=== PATIENT | female | born 1980 | race Caucasian/White ===

== ENCOUNTER 2020-08-30 19:00 | Emergency (ER) | payer MEDICAID ==
[~2020-08-30] VITALS: Ht 165.1 cm; Wt 79.5 kg
[~2020-08-30 19:00] MED LIST: HYDR-3964 PO; NO HOME MEDS
[2020-08-30] MEDS ORDERED: CEPH250T PO (19:58)
[2020-08-30 20:19] VITALS: BP 145/90
== END 2020-08-30 20:20 | disposition home or self-care (01) ==
LOC: ER 19:00
DX: K08.89 Other specified disorders of teeth and supporting structures (principal); H92.02 Otalgia, left ear; J45.909 Unspecified asthma, uncomplicated; Z90.49 Acquired absence of other specified parts of digestive tract; Z98.890 Other specified postprocedural states; Z88.8 Allergy status to other drugs, medicaments and biological substances; Z79.2 Long term (current) use of antibiotics; Z79.899 Other long term (current) drug therapy
CPT/HCPCS: 99283

== ENCOUNTER 2020-08-31 04:31 | Emergency (ER) | payer MEDICAID ==
[~2020-08-31] VITALS: Ht 165.1 cm; Wt 79.5 kg
[~2020-08-31 04:31] MED LIST changes: +CEPH250T PO
[2020-08-31 04:45] VITALS: BP 123/81
== END 2020-08-31 04:52 | disposition home or self-care (01) ==
LOC: ER 04:31
DX: K08.89 Other specified disorders of teeth and supporting structures (principal); R68.84 Jaw pain; J45.909 Unspecified asthma, uncomplicated; F17.200 Nicotine dependence, unspecified, uncomplicated; Z90.49 Acquired absence of other specified parts of digestive tract; Z98.890 Other specified postprocedural states; Z88.8 Allergy status to other drugs, medicaments and biological substances; Z79.2 Long term (current) use of antibiotics; Z79.899 Other long term (current) drug therapy
CPT/HCPCS: 99282

== ENCOUNTER 2021-03-19 06:55 | Emergency (ER) | payer MEDICAID ==
[~2021-03-19] VITALS: Ht 165.1 cm; Wt 84.5 kg
[~2021-03-19 06:55] MED LIST changes: -CEPH250T PO
[2021-03-19 06:59] VITALS: BP 113/72
[2021-03-19] MEDS ORDERED: ketorolac tromethamine 15mg/ml inj. IM ONE (08:25)
[2021-03-19] MEDS ORDERED: orphenadrine citrate 60mg/2ml inj. IM ONE (08:25)
[2021-03-19] MEDS ORDERED: ketorolac trometh. 30mg/ml inj. IM ONE (08:30)
[2021-03-19 08:51] LABS: CLARITY,URINE CLEAR (Clear); COLOR,URINE YELLOW (Yellow); GLUCOSE, URINE NEGATIVE (Neg); KETONES,URINE NEGATIVE (Neg); LEUKOCYTE ESTERASE ,URINE NEGATIVE (Neg); NITRITES, URINE NEGATIVE (Neg); OCCULT BLOOD,URINE NEGATIVE (Neg); PROTEIN,URINE NEGATIVE (Neg); URINE HCG NEGATIVE (NEG); UROBILINOGEN,URINE 0.2 E.U/dL (0.2-1.0)
[2021-03-19 08:53] LABS: UA COLLECTION TYPE CLN CATCH MIDSTREAM
[2021-03-19] MEDS ORDERED: IBUP-1984 PO (09:17)
[2021-03-19] MEDS ORDERED: ORPH100T2 PO (09:17)
== END 2021-03-19 09:30 | disposition home or self-care (01) ==
LOC: ER 06:56
DX: G89.29 Other chronic pain (principal); M54.50 Low back pain, unspecified; Z90.89 Acquired absence of other organs; Z85.9 Personal history of malignant neoplasm, unspecified; Z88.5 Allergy status to narcotic agent; Z88.6 Allergy status to analgesic agent; Z88.8 Allergy status to other drugs, medicaments and biological substances; Z79.899 Other long term (current) drug therapy
CPT/HCPCS: 81003; 81025; 96372; 99284; J1885; J2360

== ENCOUNTER 2023-01-25 08:13 | Emergency (ER) | payer MEDICAID ==
[~2023-01-25] VITALS: Ht 165.1 cm; Wt 90.0 kg
[~2023-01-25 08:13] MED LIST changes: +ORPH100T4 PO
[2023-01-25 08:45] VITALS: BP 111/76; PULSE 89; RESP 18; TEMP 98; O2SAT 98
--- NOTE | 2023-01-25 09:40 | NUR ---
[facility] ASSESSMENT REVIEWED, BY ADARSH RN; APPROVED
[2023-01-25] MEDS ORDERED: AMOX-101 PO (09:45)
[2023-01-25] MEDS ORDERED: ketorolac trometh inj. 60 MG/2 ML VIAL IM ONE (09:45)
[2023-01-25] MEDS ORDERED: ketorolac tromethamine 15mg/ml inj. IM ONE (09:50)
== END 2023-01-25 10:00 | disposition home or self-care (01) ==
LOC: ER 08:14
DX: H92.02 Otalgia, left ear (principal); J45.909 Unspecified asthma, uncomplicated; Z88.5 Allergy status to narcotic agent; Z88.8 Allergy status to other drugs, medicaments and biological substances; Z79.899 Other long term (current) drug therapy
CPT/HCPCS: 96372; 99283; J1885

== ENCOUNTER 2023-02-20 09:11 | Emergency (ER) | payer MEDICAID ==
[~2023-02-20] VITALS: Ht 165.1 cm; Wt 79.8 kg
[~2023-02-20 09:11] MED LIST changes: +AMOX-101 PO
[2023-02-20 09:25] VITALS: BP 116/78; PULSE 102; O2SAT 97
[2023-02-20] MEDS ORDERED: PRED20TA PO (11:02)
[2023-02-20] MEDS ORDERED: ketorolac trometh inj. 60 MG/2 ML VIAL IM ONE (11:05)
[2023-02-20] MEDS ORDERED: ketorolac trometh. 30mg/ml inj. IM ONE (11:05)
[2023-02-20 11:12] VITALS: RESP 16
[2023-02-20 11:13] VITALS: TEMP 97.6
== END 2023-02-20 11:17 | disposition home or self-care (01) ==
LOC: ER 09:12
DX: G56.01 Carpal tunnel syndrome, right upper limb (principal); J45.909 Unspecified asthma, uncomplicated; Z88.5 Allergy status to narcotic agent; Z88.4 Allergy status to anesthetic agent; Z88.6 Allergy status to analgesic agent; Z79.2 Long term (current) use of antibiotics; Z79.899 Other long term (current) drug therapy; Z98.890 Other specified postprocedural states
CPT/HCPCS: 96372; 99283; J1885

== ENCOUNTER 2023-04-04 08:07 | Emergency (ER) | payer MEDICAID ==
[~2023-04-04] VITALS: Ht 165.1 cm; Wt 80.9 kg
[~2023-04-04 08:07] MED LIST changes: -AMOX-101 PO
[2023-04-04 08:20] VITALS: BP 125/81; PULSE 64; RESP 16; TEMP 98; O2SAT 97
[2023-04-04] MEDS ORDERED: MOXI3DRO25 LEFTEYE (10:14)
[2023-04-04] MEDS ORDERED: CEPH-585 PO (10:14)
== END 2023-04-04 10:21 | disposition home or self-care (01) ==
LOC: ER 08:07
DX: H10.32 Unspecified acute conjunctivitis, left eye (principal); L03.213 Periorbital cellulitis; J45.909 Unspecified asthma, uncomplicated; Z90.49 Acquired absence of other specified parts of digestive tract; Z88.5 Allergy status to narcotic agent; Z88.0 Allergy status to penicillin; Z79.899 Other long term (current) drug therapy
CPT/HCPCS: 99283

== ENCOUNTER 2023-08-24 09:27 | Emergency (ER) | payer MEDICAID ==
[~2023-08-24 09:27] MED LIST changes: +CEPH-585 PO
== END 2023-08-24 09:45 | disposition left against medical advice (07) ==
LOC: ER 09:28
DX: M25.561 Pain in right knee (principal); Z53.21 Procedure and treatment not carried out due to patient leaving prior to being seen by health care provider

== ENCOUNTER 2024-03-19 08:45 | Emergency (ER) | payer MEDICAID ==
[~2024-03-19] VITALS: Ht 165.1 cm; Wt 79.5 kg
[2024-03-19] MEDS ORDERED: NAPR-996 PO (10:09)
[2024-03-19 10:24] VITALS: BP 122/66; PULSE 68; RESP 16; TEMP 98.5; O2SAT 99
== END 2024-03-19 10:25 | disposition home or self-care (01) ==
LOC: ER 08:45
DX: R20.2 Paresthesia of skin (principal); J45.909 Unspecified asthma, uncomplicated; Z88.5 Allergy status to narcotic agent; Z88.0 Allergy status to penicillin; Z90.49 Acquired absence of other specified parts of digestive tract
CPT/HCPCS: 29125; 99283

== ENCOUNTER 2025-01-02 07:25 | Emergency (ER) | payer MEDICAID ==
[~2025-01-02] VITALS: Ht 165.1 cm; Wt 81.3 kg
[~2025-01-02 07:25] MED LIST changes: -CEPH-585 PO; +NAPR-1168 PO
[2025-01-02 07:29] VITALS: TEMP 97.9
--- NOTE | 2025-01-02 08:03 | Physician Documentation ---
History of Present Illness ~ Chief Complaint: Elbow pain Stated Complaint: ELBOW SWELLING Time Seen by MD: 07:35 OK to notify your PCP?: Yes Primary Medical Doctor: Joy mcgrath Source: patient Mode of Arrival: POV Exam Limitations: no limitations HPI Ms. Araujo is a 44 y/o female who presents to the ED with c/o swelling to her right elbow. She states that she noticed the swelling a month ago and it has been persistent. No redness. No fever/chills. No report of trauma. Several years ago, she had "fatty tissue" removed from the same area, but has had no further issues with her right elbow until now. Tetanus within 5 years: Yes Medication Reconciliation Allergies: Coded Allergies: codeine (Unverified Allergy, Mild, lightheadedness, 01/02/25) Penicillins (Verified Allergy, Unknown, 01/02/25) Scheduled Naproxen (Naproxen), 1 TAB PO Q12H Orphenadrine Citrate (Norflex), 1 TAB PO Q12H PRN Scheduled PRN Hydrocodone Bit/Acetaminophen (Hydrocodon-Acetaminophen 5-325), 1 TAB PO Q4H PRN for MODERATE PAIN 4-6 Miscellaneous Medications Home Med List (No Home Medications), (Reported) Past Medical History Past Medical History: Asthma, Lymphoma Past Surgical History: appendectomy, cancer surgery Patient History: FH: breast cancer MOTHER maternal grandmother paternal grandmother FH: diabetes mellitus maternal grandmother paternal grandmother FH: heart disease maternal grandmother paternal grandmother FH: kidney cancer MOTHER Alcohol Use: None Drug Use: none Lives with: Family Lives In: Home Review of Systems All Other Systems at this time: Reviewed and Negative Physical Exam Vital Signs: RN Vital Signs have been reviewed: Yes, Temperature: 97.9, Source: Temporal, Heart Rate: 115, Respiratory Rate: 18, BP: 129/84, Pulse Oximetry: 99, Weight: 81.300 General Appearance: alert, WD/WN EENT: PERRL/EOMI Neck: full range of motion Respiratory: no respiratory distress Chest: no accessory muscle use Cardiovascular: normal peripheral pulses, no edema Shoulder: normal inspection Elbow/Forearm + fluid filled cyst to right elbow. No cellulitis No gross deformity Full ROM Skin: normal color Lymphatic: normal inspection Neurologic: oriented x4 Psychiatric: normal mood/affect Progress Results/Orders Results/Orders Orders - ALLYSSA CROW MD Elbow, Complete (3vw Min) (01/02/25 07:35) Completed Orders - ALLYSSA CROW MD Elbow, Complete (3vw Min) (01/02/25 07:35) Vital Signs 01/02/25 01/02/25 07:29 08:00 Temp 97.9 Pulse 115 109 Resp 18 18 B/P (MAP) 129/84 103/70 (81) Pulse Ox 99 97 O2 Flow Rate 0 EKG/XRAY/CT/US/VASC/MRI Bone/Soft Tissue X-Ray (Spine) : Interpreted By: self Views: 2 VIEW Indication: pain Location: other Impression: normal Additional Comment As interpreted by me, the plain film of her left elbow are without radiographic evidence of an acute osseous abnormality. Medical Decision Making Elbow Diff Dx:Considerations: Include: Arthritis, Fracture-humerus, Gout, Hematoma, Osteomyelitis, Rheumatoid arthritis, Septic Additional Comment Ms. Araujo is a 44 y/o female who presents to the ED with c/o swelling to her right elbow x 1 month. While here in the ED, she remained hemodynamically normal with ABC's intact and in NAD. She is afebrile and nontoxic. I evaluated her right elbow and there is no cellulitis or other signs suggestive of an acute infection/infected joint. I reviewed the plain films and there are no radiographic signs to suggest an acute osseous abnormality. Her s/s are most consistent with a cyst vs lipoma. Nothing to do acutely in the ED. She has been referred back to her PCP for further evaluation and possible referral back to Ortho. She was given follow-up and return instructions. She voiced understanding and agreement with d/c instructions. Departure Disposition: HOME / SELF CARE / HOMELESS Impression: Primary Impression: Synovial cyst of elbow Condition: Stable Discharge Instructions: Arachnoid Cyst Referrals: NO PRIMARY CARE PROVIDER (PCP) Education Educated: Patient Educated regarding: diagnosis Signature Scribe Signature: N/A Attestation: N/A ALLYSSA CROW MD Jan 02, 2025 08:03
--- NOTE | 2025-01-02 08:36 | RADIOLOGY REPORT ---
CLINICAL INDICATION: ELBOW PAIN TECHNIQUE: DI ELBOW, COMPLETE (3VW MIN), right Comparison: None FINDINGS/IMPRESSION: : There is no evidence of acute fracture or dislocation. Soft tissues are unremarkable.
[2025-01-02 08:52] VITALS: BP 103/70; PULSE 84; RESP 18; O2SAT 98
== END 2025-01-02 08:58 | disposition home or self-care (01) ==
LOC: ER 07:26
DX: M71.321 Other bursal cyst, right elbow (principal); J45.909 Unspecified asthma, uncomplicated; Z88.0 Allergy status to penicillin; Z88.5 Allergy status to narcotic agent; Z90.49 Acquired absence of other specified parts of digestive tract
CPT/HCPCS: 73080; 99283

== ENCOUNTER 2025-02-20 15:33 | Emergency (ER) | payer MEDICAID ==
[~2025-02-20] VITALS: Ht 162.6 cm; Wt 81.1 kg
[2025-02-20 15:49] VITALS: BP 133/85; PULSE 105; O2SAT 97
--- NOTE | 2025-02-20 16:05 | Physician Documentation ---
HPI ~ General Chief Complaint: Tooth Problem Stated Complaint: TOOTH PAIN Time Seen by MD: 17:12 Primary Medical Doctor: Joy mcgrath History of Present Illness HPI Comment Patient is a very pleasant 44-year-old female that presents to the emergency department for worsening tooth pain. Patient reports he was seen in the dentist office yesterday placed on antibiotics told that she will need to have 2-3 teeth extracted with a can not do until she finishes her course of antibiotics patient was prescribed 800 mg of ibuprofen at that time. Patient reports she was told by her doctor to come to the emergency department as the ibuprofen is not controlling her pain. No fever chills nausea vomiting diarrhea reported at this time. No other symptoms reported at this time. Medication Reconciliation Allergies: Coded Allergies: codeine (Unverified Allergy, Mild, lightheadedness, 02/20/25) Penicillins (Verified Allergy, Unknown, 02/20/25) Scheduled Naproxen (Naproxen), 1 TAB PO Q12H Orphenadrine Citrate (Norflex), 1 TAB PO Q12H PRN Scheduled PRN Hydrocodone Bit/Acetaminophen (Hydrocodon-Acetaminophen 5-325), 1 TAB PO Q4H PRN for MODERATE PAIN 4-6 Miscellaneous Medications Home Med List (No Home Medications), (Reported) Past Medical History Past Medical History: Asthma, Lymphoma Past Surgical History: appendectomy, cancer surgery Patient History: FH: breast cancer MOTHER maternal grandmother paternal grandmother FH: diabetes mellitus maternal grandmother paternal grandmother FH: heart disease maternal grandmother paternal grandmother FH: kidney cancer MOTHER Alcohol Use: None Drug Use: none Lives with: Family Lives In: Home Review of Systems ROS As stated above in the HPI, otherwise all systems are reviewed and negative. Physical Exam Vital Signs: Temperature: 97.2, Source: Temporal, Heart Rate: 105, Respiratory Rate: 18, BP: 133/85, Pulse Oximetry: 97, Weight: 81.100 Oxygen Flow Rate: 0 Physical Exam VITALS: Reviewed and as above. GENERAL: Alert, no apparent distress. HEENT: Normocephalic, atraumatic, PERRL, EOMI, dry mucosa, no erythema, erythema and swelling noted to the left lower jaw adjacent to a broken tooth patient accompanying abscess and submandibular lymphadenopathy. RESPIRATORY: Lungs clear, normal breath sounds, no respiratory distress. MUSCULOSKELETAL No deformities, no edema SKIN: Warm and dry, no rash NEURO: Oriented x4, No motor or sensory deficit PSYCH: Normal mood and affect, no agitation Progress Results/Orders Results/Orders Completed Orders - ADRIANOGIA Solomon VIRGEN Ketorolac Trometh 15mg/Ml Vial (Toradol (02/20/25 17:45) Acetaminophen 325mg Tablet (Tylenol Tabl (02/20/25 17:45) Amox Tr/Potassium Clavulanate (Augmentin (02/20/25 17:45) Medications Received in ER Medications (Trade) Dose Ordered Sig/Conrad Route PRN Reason Start Time Stop Time Status Last Admin Dose Admin (Toradol injection) 15 mg ONCE ONCE IM 02/20/25 17:45 02/20/25 17:46 DC 02/20/25 18:05 15 MG (Tylenol tablet) 975 mg ONCE ONCE PO 02/20/25 17:45 02/20/25 17:46 DC 02/20/25 18:04 975 MG (Augmentin 875-125mg tablet) 1 tab ONCE ONCE PO 02/20/25 17:45 02/20/25 17:46 DC 02/20/25 18:05 1 TAB Vital Signs 02/20/25 02/20/25 15:49 18:05 Temp 97.2 Pulse 105 Resp 18 20 B/P (MAP) 133/85 Pulse Ox 97 O2 Flow Rate 0 Medical Decision Making Additional information obtaine: other Findings 44-year-old female presented with lower left jaw third molar abscess and associated submandibular lymphadenopathy. She denied fever, chills, nausea, vomiting, or diarrhea, but reported significant pain. Initial outpatient management included amoxicillin and ibuprofen; however, pain worsened and was not controlled with NSAIDs. Patient expressed concern that antibiotics were ineffective. On ED evaluation, pain was managed with Toradol injection and acetaminophen, resulting in good improvement. Given lack of response to amoxicillin and persistent symptoms, antibiotic therapy was escalated to amoxicillin-clavulanate (Augmentin), with the first dose administered in the ED. The patient was counseled to complete the full course as prescribed and to monitor for adverse effects or lack of improvement. Per ADA guidelines, amoxicillin is preferred first-line for odontogenic abscesses, but amoxicillin-clavulanate is indicated for non-responders or those with evidence of spreading infection (e.g., lymphadenopathy). The selected regimen is supported by susceptibility data and FDA labeling. NSAIDs and acetaminophen are recommended as first-line analgesics for dental pain, with opioid use reserved for refractory cases. Patient was instructed to seek urgent dental follow-up for definitive management (e.g., incision and drainage, root canal) and to return for reevaluation within 3 days or sooner if symptoms worsen (progression of swelling, fever, trismus, or systemic signs). She was advised to discontinue antibiotics 24 hours after symptom resolution, per guideline recommendations. No evidence of airway compromise or deep space infection at this time. Discharged in stable condition with clear instructions for follow-up and symptom monitoring. Differential Dx:Considerations: Include: Alveolar fracture, Alveolar osteitis, ANUG, Facial Cellulitis, Periapical abscess, Peridontal abscess, Post-extraction bleeding, Pulpitis, Tooth avulsion, Tooth eruption, Tooth Fracture, Trigeminal neuralgia, Tooth subluxation, Other Departure Disposition: 01 HOME / SELF CARE / HOMELESS Impression: Primary Impression: Toothache Additional Impressions: Dental abscess Dental caries Condition: Stable Discharge Instructions: Dental Pain, Dental Caries, Adult, Dental Abscess Additional Instructions: You have been treated for a dental abscess (infection) near your lower left wisdom tooth, with swelling of a nearby lymph node. You received pain relief and started a new antibiotic (amoxicillin-clavulanate) because your previous antibiotic (amoxicillin) was not effective. What to do next: Take your antibiotics exactly as prescribed. Do not skip doses. If your symptoms completely resolve, you may stop the antibiotic 24 hours after all symptoms are gone, but do not stop early unless directed by your provider. Continue pain medications as needed. Ibuprofen and acetaminophen are safe and effective for dental pain. Take only as directed on the label or by your provider. Monitor for side effects. Call your provider if you develop rash, trouble breathing, severe diarrhea (especially more than 3 loose stools per day), abdominal pain, or fever. Watch for signs your infection is not improving: If you notice increased swelling, redness, pain, trouble swallowing or breathing, fever, or if you feel worse, seek medical attention right away. Do not save or share leftover antibiotics. Dispose of any unused medication at a local pharmacy or disposal center. Follow up: You should be reevaluated within 3 days, either by phone or in person, to make sure your infection is improving. Dental care: Schedule an appointment with your dentist or oral surgeon as soon as possible for definitive treatment, such as drainage or removal of the affected tooth, which is necessary to fully resolve the infection. Important reminders: Take all medications with a full glass of water. If you have any chronic medical conditions or take other medications, let your provider know, as some drugs can interact with pain or antibiotic medicines. If you have any questions or concerns, contact your healthcare provider. Your health and safety are important. Prompt follow-up and completing your treatment will help you recover quickly and prevent complications. Referrals: NO PRIMARY CARE PROVIDER (PCP) Prescriptions Amox Tr/Potassium Clavulanate (Augmentin 875-125 Tablet) 1 Each Tablet 1 TAB PO Q12H for 10 Days, #20 TAB Prov: GIA OH 02/20/25 Education Educated: Patient Educated regarding: diagnosis, treatment, prognosis, need for follow up Signature Scribe Signature: A Attestation: Scribed for Gia Oh by PARAM Victor . 02/20/25 18:30 GIA OH Feb 20, 2025 16:05
[2025-02-20 18:05] VITALS: RESP 20
[2025-02-20] MEDS: amox tr/potassium clavulanate 875/125mg TAB PO ONE (18:05)
[2025-02-20] MEDS: ketorolac trometh 15mg/ml vial 15 MG/ML ML IM ONE (18:05)
[2025-02-20] MEDS ORDERED: AMOX-117 PO (18:23)
[2025-02-20 18:33] VITALS: TEMP 97.2
== END 2025-02-20 18:38 | disposition home or self-care (01) ==
LOC: ER 15:34
DX: K04.7 Periapical abscess without sinus (principal); K02.9 Dental caries, unspecified; J45.909 Unspecified asthma, uncomplicated; Z88.0 Allergy status to penicillin; Z88.5 Allergy status to narcotic agent; Z90.49 Acquired absence of other specified parts of digestive tract
CPT/HCPCS: 96372; 99283; J1885

== ENCOUNTER 2025-03-17 09:31 | Emergency (ER) | payer MEDICAID ==
[~2025-03-17] VITALS: Ht 165.1 cm; Wt 79.5 kg
[2025-03-17 09:50] VITALS: BP 124/74; PULSE 89; RESP 18; TEMP 98; O2SAT 98
[2025-03-17] MEDS: ibuprofen tablet 400 MG TABLET PO ONE (11:51)
--- NOTE | 2025-03-17 12:09 | Physician Documentation ---
History of Present Illness ~ Chief Complaint: Wrist pain Stated Complaint: L WRIST PAIN Time Seen by MD: 10:36 Primary Medical Doctor: Joy mcgrath [facility] This is a 44-year-old female who presents with left wrist pain onset this morning, patient reports possible injury two days prior as she put weight on the wrist while retrieving a golf ball while playing many golf. Patient reports the pain is specifically in her posterior radial aspect of the wrist worse when moving her wrist touching area. Patient reports no other injuries and reports no other acute symptoms or concerns. Tetanus within 5 years: Yes Medication Reconciliation Allergies: Coded Allergies: codeine (Unverified Allergy, Mild, lightheadedness, 02/20/25) Penicillins (Verified Allergy, Unknown, 02/20/25) Scheduled Naproxen (Naproxen), 1 TAB PO Q12H Orphenadrine Citrate (Norflex), 1 TAB PO Q12H PRN Scheduled PRN Hydrocodone Bit/Acetaminophen (Hydrocodon-Acetaminophen 5-325), 1 TAB PO Q4H PRN for MODERATE PAIN 4-6 Miscellaneous Medications Home Med List (No Home Medications), (Reported) Past Medical History Past Medical History: Asthma, Lymphoma Past Surgical History: appendectomy, cancer surgery Patient History: FH: breast cancer MOTHER maternal grandmother paternal grandmother FH: diabetes mellitus maternal grandmother paternal grandmother FH: heart disease maternal grandmother paternal grandmother FH: kidney cancer MOTHER Alcohol Use: None Drug Use: none Lives with: Family Lives In: Home Review of Systems ROS As stated above in the HPI, otherwise all systems are reviewed and negative. Physical Exam Vital Signs: Temperature: 98.0, Heart Rate: 89, Respiratory Rate: 18, BP: 124/74, Pulse Oximetry: 98, Weight: 79.550 Oxygen Flow Rate: 0 Physical Exam VITALS: Reviewed and as above. GENERAL: Alert, nontoxic appearing, no apparent distress. RESPIRATORY: No increased work of breathing, no respiratory distress, speaking in full clear sentences CV: Brisk capillary refill to fingers of left hand MUSCULOSKELETAL: Mild swelling with tenderness to posterior aspect of left radial wrist with remainder of wrist non swollen and nontender, no ecchymosis, no erythema, ROM intact to fingers of left hand NEURO: Sensation intact to left hand Progress Results/Orders Results/Orders Orders - JUAN,LLOYD W ASSISTANT TRACK AND FIELD COACH Wrist, Complete (3vw Min) (03/17/25 09:53) Ortho Orders (03/17/25 ) Completed Orders - LLOYD MARTINEZ ASSISTANT TR[employer] AND FIELD COACH Wrist, Complete (3vw Min) (03/17/25 09:53) Ibuprofen Tablet (Motrin Tablet) (03/17/25 11:50) Vital Signs 03/17/25 09:50 Temp 98.0 Pulse 89 Resp 18 B/P (MAP) 124/74 Pulse Ox 98 O2 Flow Rate 0 EKG/XRAY/CT/US/VASC/MRI Bone/Soft Tissue X-Ray (Ext.) : Additional Comment Exam: WRIST, COMPLETE (3VW MIN) CLINICAL INDICATION: LT.WRIST PAIN TECHNIQUE: 3 views of the left wrist were performed. DI WRIST, COMPLETE (3VW MIN) Comparison: DI ELBOW, COMPLETE (3VW MIN) on DOS: 01/02/25 FINDINGS/IMPRESSION: No acute fracture or dislocation of the left wrist. Electronically Signed by:GUILLE FERRELL MD Date & Time: 03/17/251313 Dictated by: GUILLE FERRELL MD Dictation date and time: 03/17/251313 I have reviewed and agree with the radiology report. I have reviewed and interpreted the imaging as: No fracture or dislocation Medical Decision Making Additional information obtaine: N/A Findings 44-year-old female presented with pain and swelling to her left posterior radial wrist onset this morning after a possible injury two days prior, physical exam demonstrated point tenderness to posterior aspect of left radial wrist with remainder of wrist nontender to palpation and with no swelling, ecchymosis, or erythema. It was reassuring the hand is neurovascularly intact. Imaging did not demonstrate evidence of fracture or dislocation, I suspect soft tissue injury or ganglion cyst to the area. Patient will require follow up with the primary care provider. Patient is otherwise well-appearing and appropriate for outpatient follow up. General Diff Dx:Considerations: Include: Abrasion, Contusion, Fracture, Hematoma, Laceration, Neurovascular injury, Open fracture, Sprain, Ulcer Shoulder Diff Dx:Consideration: Unlikely: AC separation, Adhesive capsulitis, Arthritis, Bicipital tendonitis, Calcific tendonitis, Cervical disc disease, Contusion, Dislocation, Fracture-humerus, Fracture-scapula, Fracture-clavicle, GB disease, Hematoma, Impingement syndrome, Myocardial infarction, Neurovascular injury, Open fracture-humerus, Open fracture-scapula, Open fracture-clavicle, Rotator cuff injury, SC dislocatoin, Sprain, Subacromial bursitis, Other Elbow Diff Dx:Considerations: Unlikely: Abrasion, Arthritis, Contustion, DJD, Fracture-humerus, Fracture-radial head, Fracture-radius, Fracture-ulna, Gout, Hematoma, Laceration, Neurovascular injury, Olecranon bursitis, Open fracture, Osteomyelitis, Radial head subluxation, Rheumatoid arthritis, Septic, Sprain, Ulcer, Other Wrist Diff Dx:Considerations: Include: Abrasion, Arthritis, DJD, Gout, Rheumatoid, Septic, Carpal tunnel snydrome, Contusion, Dislocation, Fracture- carpal, Fracture-radius, Fracture-ulna, Ganglion, Laceration, Neurovascular injury, Open fracture, Strain Hand Diff Dx:Considerations: Include: Abrasion, Arthritis, Contusion, Gout, Neurovascular injury Finger Diff Dx:Considerations: Unlikely: Abrasion, Cellulitis, Contusion, Dislocation, Fracture, Hematoma, Laceration, Neurovascular injury, Open fractu re, Subungual hematoma, Other Departure Time of Disposition: 12:08 Disposition: 01 HOME / SELF CARE / HOMELESS Impression: Primary Impression: Wrist joint pain Qualified Codes: M25.532 - Pain in left wrist Condition: Improved Discharge Instructions: RICE Therapy for Routine Care of Injuries, [id number], Wrist Pain, Adult Additional Instructions: Please see the attached home care instructions, wear your brace for comfort. You may use ibuprofen and or Tylenol as needed for pain as directed by [id number] packaging. Please follow up with your primary care provider in the next few days. Please return to the emergency department for any new or worsening concerning symptoms. Referrals: NO PRIMARY CARE PROVIDER (PCP) Education Educated: Patient Educated regarding: diagnosis, treatment, prognosis, need for follow up Signature Scribe Signature: No scribe Attestation: The note accurately reflects work and decisions made by me.PARAM Orozco 03/17/25 20:54 LLOYD MARTINEZ Mar 17, 2025 12:09
--- NOTE | 2025-03-17 13:16 | RADIOLOGY REPORT ---
CLINICAL INDICATION: LT.WRIST PAIN TECHNIQUE: 3 views of the left wrist were performed. DI WRIST, COMPLETE (3VW MIN) Comparison: DI ELBOW, COMPLETE (3VW MIN) on DOS: 01/02/25 FINDINGS/IMPRESSION: No acute fracture or dislocation of the left wrist.
== END 2025-03-17 12:43 | disposition home or self-care (01) ==
LOC: ER 09:32
DX: M25.532 Pain in left wrist (principal); J45.909 Unspecified asthma, uncomplicated; Z85.72 Personal history of non-Hodgkin lymphomas; Z88.0 Allergy status to penicillin; Z88.6 Allergy status to analgesic agent; Z90.49 Acquired absence of other specified parts of digestive tract
CPT/HCPCS: 73110; 99283